=== PATIENT | female | born 1980 | race Caucasian/White ===

== ENCOUNTER 2019-10-16 00:39 | Emergency (ER) | payer MEDICAID, SELFPAY ==
[2019-10-16 00:58] VITALS: BP 121/68; RESP 16; O2SAT 96; BMI 30.4
--- NOTE | 2019-10-16 01:02 | ED_ITS ---
Entered by Francia Myrick, acting as scribe for Andrea Canseco DO Oct 16, 2019 00:39 HPI - Seizure General: Chief Complaint: Syncope Stated Complaint: PASSED OUT, SEIZURE Time Seen by Provider: 10/16/19 01:03 Source: patient and family Mode of arrival: ambulatory Limitations: no limitations History of Present Illness: HPI Narrative: 39 yo f came to the er pov with family for a possible seizure. Onset was tonight. Family states that she has had multiple seizures the last few weeks. Family states that she had one tonight when she was setting on the side of the bed and then started to shaking all over and her eyes rolled in the back of her head. Pts family states that she is out for a couple of minutes at a time. Pt has a tremor in her right hand. MD complaint: seizure Onset (ago): day(s) (last night) Description of Episode: loss of consciousness Witnessed: Yes - by Other () Trauma: No Seizure History: Yes Place: Home Possible Precipitating Event: none Associated symptoms: Reports no associated symptoms; Deny chest pain, chills, confusion or fever(s) Review of Systems Const: Denies: fever or chills Eyes: Denies: change in vision or blurry vision ENMT: Denies: painful swallowing, swelling of lips/tongue, bleeding gums, den tyson pain, Change in hearing, nose bleeds, post nasal drip or facial/sinus pain Card: Denies: chest pain Resp: Denies: shortness of breath, productive cough, non-productive cough or wheezing GI: Denies: abdominal pain, nausea, vomiting, rectal pain, blood in stool or black tarry stool : Denies: painful urination, urinary frequency, urinary urgency or blood in urine Musc: Denies: neck pain, back pain, redness or joint warmth Skin/Breast: Denies: rash, itching or redness Neuro: Denies: confusion Psych: Denies: anxiety PFSH ED PFSH: Statuses (acute, chronic, etc) shown below reflect problem list status as previously entered and may not be historically accurate Social History Smoking and tobacco status: current every day smoker Physical Exam Const: GENERAL APPEARANCE: well developed ORIENTATION/CONSCIOUSNESS: Yes oriented to person, Yes oriented to place and Yes oriented to time HENMT: COMMON NORMALS: normocephalic, external ears normal and external nose normal HEAD & SCALP: normocephalic; no scalp tenderness FACE & SINUS: normal facial exam NOSE: external nose normal and no nasal discharge EXTERNAL EAR: Yes external ears normal MOUTH: tongue normal TEETH & GINGIVA: no abnormal tooth and associated gingiva THROAT: posterior oropharynx normal; no peritonsillar mass Eye: COMMON NORMALS: PERRL, EOMs intact bilaterally and conjunctivae normal EYELID: eyelids normal CONJUNCTIVA: Yes conjunctivae normal PUPIL: Yes PERRL Neck/C-Spine: COMMON NORMALS: full ROM GENERAL: No tracheal deviation CERVICAL SPINE: Yes normal cervical lordosis and No cervical spine tenderness Chest: COMMONS NORMALS: inspection of chest normal CHEST: No tenderness Resp: COMMON NORMALS: clear to auscultation bilaterally EFFORT & INSPECTION: No tachypneic, No respiratory distress, No retractions, No uses accessory muscles and No tracheal deviation AUSCULTATION: clear to auscultation bilaterally, no rhonchi, no wheezes and lung sounds not diminished Cardio: COMMON NORMALS: regular rate and regular rhythm RATE: regular rate RHYTHM: regular rhythm HEART SOUNDS: no murmurs PERIPHERAL PULSES: radial pulses present GI: INSPECTION: No abdominal distension AUSCULTATION: No hyperactive bowel sounds and No hypoactive bowel sounds PALPATION: No guarding and No rigid PERCUSSION: no dullness to percussion and no tympanic to percussion : COMMON NORMALS: Yes no CVA tenderness BLADDER/KIDNEY EXAM: Yes no CVA tenderness Back/Pelvis: COMMON NORMALS: no CVA tenderness Neuro: SENSORIUM/ORIENTATION: Yes oriented to person, Yes oriented to place and Yes oriented to time CRANIAL NERVES: Yes CN normal except as noted COORDINATION/BALANCE: ksazrn-kq-tqru test normal and rapid alternating mvmt upper ext normal SPEECH: speech normal SENSORY EXAM: Yes extremities MOTOR EXAM: no pronator drift and tremor resting tremor right upper extremity COORDINATION: xlgfyc-sj-xqak test normal and rapid alternating movement UE normal Psych: COMMON NORMALS: mental status grossly normal Skin: COMMON NORMALS: no rashes or lesions noted GENERAL SKIN EXAM: no rashes or lesions noted Course ED course: 39-year-old female with a history of migraines. She has been having seizure-like episodes for the past few weeks, and seeming to be increasing in frequency. She had 2 tonight. She did not have a headache when they started, but does have a headache afterward. She is mildly confused when she wakes, but clears quickly. There is no history of loss of bowel or bladder control, biting of the tongue, etc. Her work-up was essentially benign. Because of multiple episodes, including 1 here, she will be placed on Keppra. She has an evaluation appointment next week with neurology. Vital Signs: Vital signs: Vital Signs Pulse Rate 75 10/16/19 03:15 Respiratory Rate 16 10/16/19 03:28 Blood Pressure 121/68 10/16/19 03:15 Pulse Oximetry 98 10/16/19 03:15 MDM - Seizure Lab Data: Labs: Lab Results 10/16/19 10/16/19 10/16/19 Range/Units 01:35 01:35 01:35 WBC 10.1 H (4.0-10.0) 10^3/ uL RBC 4.07 L (4.1-5.3) 10^6/u L Hgb 12.7 (11.5-15.3) g/dL Hct 38.2 (37.0-47.0) % MCV 93.9 (81-99) fL MCH 31.2 (28.0-34.0) pg MCHC 33.2 (30.0-36.0) g/dL RDW 13.0 (12.1-15.1) % Plt Count 454 H (130-400) 10^3/c mm MPV 9.6 (7.4-10.4) fL Neut % (Auto) 47.2 % Lymph % (Auto) 40.9 % [place] % (Auto) 8.4 % Eos % (Auto) 2.7 % Baso % (Auto) 0.6 % Neut # (Auto) 4.8 (1.8-7.7) 10^3/u L Lymph # (Auto) 4.1 (0.8-4.8) 10^3/u L [place] # (Auto) 0.9 (0.2-0.9) 10^3/u L Eos # (Auto) 0.3 (0.0-0.8) 10^3/u L Baso # (Auto) 0.1 (0.0-0.1) 10^3/u L Nucleated RBC % (a uto) 0 % Nucleated RBCs # 0.0 /100WBC Sodium 139 (136-145) mmol/L Potassium 3.5 (3.5-5.1) mmol/L Chloride 103 (98-107) mmol/L Carbon Dioxide 25 (22-29) mmol/L Anion Gap 14.5 (5-19) BUN 8 (6-20) mg/dL Creatinine 0.6 (0.5-0.9) mg/dL GFR Calculation 111.9 (90-130) mL/min Glucose 92 (74-109) mg/dL Calcium 9.9 (8.5-10.5) mg/dL Phosphorus 5.0 H (2.5-4.5) mg/dL Magnesium 2.1 (1.7-2.3) mg/dL Total Bilirubin 0.2 (0.15-1.2) mg/dL AST 13 (0-32) U/L ALT 20 (0-33) U/L Alkaline Phosphata se 75 (35-105) IU/L Ammonia 30 (11-51) umol/L Troponin T Gen 5 n g/L (0-10) ng/mL Total Protein 6.7 (6.6-8.7) g/dL Albumin 4.2 (3.5-5.2) g/dL Globulin 2.5 (1.3-4.6) g/dL Ethyl Alcohol < 10 (0-10) mg/dL 10/16/19 Range/Units 01:35 WBC (4.0-10.0) 10^3/ uL RBC (4.1-5.3) 10^6/u L Hgb (11.5-15.3) g/dL Hct (37.0-47.0) % MCV (81-99) fL MCH (28.0-34.0) pg MCHC (30.0-36.0) g/dL RDW (12.1-15.1) % Plt Count (130-400) 10^3/c mm MPV (7.4-10.4) fL Neut % (Auto) % Lymph % (Auto) % [place] % (Auto) % Eos % (Auto) % Baso % (Auto) % Neut # (Auto) (1.8-7.7) 10^3/u L Lymph # (Auto) (0.8-4.8) 10^3/u L [place] # (Auto) (0.2-0.9) 10^3/u L Eos # (Auto) (0.0-0.8) 10^3/u L Baso # (Auto) (0.0-0.1) 10^3/u L Nucleated RBC % (a uto) % Nucleated RBCs # /100WBC Sodium (136-145) mmol/L Potassium (3.5-5.1) mmol/L Chloride (98-107) mmol/L Carbon Dioxide (22-29) mmol/L Anion Gap (5-19) BUN (6-20) mg/dL Creatinine (0.5-0.9) mg/dL GFR Calculation (90-130) mL/min Glucose (74-109) mg/dL Calcium (8.5-10.5) mg/dL Phosphorus (2.5-4.5) mg/dL Magnesium (1.7-2.3) mg/dL Total Bilirubin (0.15-1.2) mg/dL AST (0-32) U/L ALT (0-33) U/L Alkaline Phosphata se (35-105) IU/L Ammonia (11-51) umol/L Troponin T Gen 5 n g/L 6 (0-10) ng/mL Total Protein (6.6-8.7) g/dL Albumin (3.5-5.2) g/dL Globulin (1.3-4.6) g/dL Ethyl Alcohol (0-10) mg/dL Imaging Data^: CT Head: Radiologist's impression: [place] [address] CT Scan Report Signed Patient: Abi Boyle #: [id number] : 1980Acct#:[id number] Age/Sex: 39 / FADM Date: 10/16/19 Loc: ERRoom/Bed: Attending Dr: Ordering Provider/Ordering MD: Andrea Canseco DO Date of Service: 10/16/19 Procedure(s): CT head wo con* [id number] Accession Number(s): [id number] Report Number: [id number] PROCEDURE INFORMATION: Exam: CT Head Without Contrast Exam date and time: 10/16/2019 1:35 AM Age: 39 years old Clinical indication: Condition or disease; Convulsions or seizures; Unspecified; Additional info: Symptoms of acute stroke TECHNIQUE: Imaging protocol: Computed tomography of the head without contrast. Total DLP: 752.06 mGy-cm Radiation optimization: All CT scans at this facility use at least one of these dose optimization techniques: automated exposure control; mA and/or kV adjustment per patient size (includes targeted exams where dose is matched to clinical indication); or iterative reconstruction. COMPARISON: No relevant prior studies available. FINDINGS: Brain: Normal. No hemorrhage. Unremarkable white matter. No mass effect. Ventricles: Normal. No ventriculomegaly. Bones/joints: Unremarkable. No acute fracture. Sinuses: There is mild mucosal thickening and fluid seen within the ethmoidal sinuses. Mastoid air cells: Visualized mastoid air cells are well aerated. Soft tissues: Unremarkable. CT/CT head wo con* [id number] IMPRESSION: There are no acute intracranial findings. Radiation Dose CTDIVOL = (mGy): DLP = 752.06 (mGy-cm) Dictated By:Cameron Silva MD Signed By:Cameron Silvaigned Date/Time:10/16/19206 DD/ 5 Discharge Plan Discharge Patient Disposition: Home, Self-Care Clinical Impression: Seizure Condition: Stable Prescriptions: New Keppra 500 mg tablet 500 mg PO BID Qty: 30 RF: 0 No Action ibuprofen 800 mg Tablet 800 mg PO Q8H RF: 0 omeprazole 20 mg Capsule,Delayed Release(Dr/Ec) 20 mg PO DAILY RF: 0 naproxen 500 mg Tablet 500 mg PO BID PRN (Reason: Pain) RF: 0 Lialda 1.2 gram Tablet,Delayed Release (Dr/Ec) 4.8 g PO BEDTIME RF: 0 Discharge Orders: Discharge Order (Routine); Ordered 10/16/19 Ordered By: Andrea Canseco Referrals: [facility] [Primary Care Provider] - Discharge Diet: Usual diet Discharge Activity: Increase activity as tolerated Patient Instructions: New-Onset Seizure in Adults (ED) Activity Restrictions/Additional Instructions: Return for repeated episodes of seizure despite treatment, mental status changes, weakness, other concerning symptoms. Discharge Date/Time: 10/16/19 03:29 Coding Level of Care Code ED Sheep Farm Worker for Bella Orourke The documentation recorded by the Ramez ramirez Stephanie Lyn, accurately reflects the service I personally performed and the decisions made by , Andrea Canseco, Oct 16, 2019 00:39
--- NOTE | 2019-10-16 01:27 | XRR_ITS ---
PROCEDURE INFORMATION: Exam: XR Chest, 1 View Exam date and time: 10/16/2019 2:15 AM Age: 39 years old Clinical indication: Other: Syncope; Additional info: Syncope, passed out, seizure TECHNIQUE: Imaging protocol: XR of the chest Views: 1 view. COMPARISON: No relevant prior studies available. FINDINGS: Lungs: Minor lingular area of atelectasis, scarring or pneumonitis with pleural thickening or minimal effusion. Pleural space: Unremarkable. No pleural effusion. No pneumothorax. Heart/Mediastinum: Unremarkable. No cardiomegaly. Bones/joints: Unremarkable. XR/XR chest 1V portable [id number] IMPRESSION: For minimal lingular scarring/atelectasis or pneumonitis with pleural thickening or minimal effusion.
--- NOTE | 2019-10-16 01:27 | ECG_ITS ---
Measurements Intervals [place] Rate: 75 P: 28 [place]: 322 QRS: 27 QRSD: 78 T: 20 QT: 365 QTc: 408 SINUS RYTHM WITH ARTIFACT LOW QRS VOLTAGE IN PRECORDIAL LEADS [QRS DEFLECTION < 1.0 mV IN CHEST LEADS] ABNORMAL RHYTHM ECG No previous ECG available for comparison Electronically Signed On 10-16-2019 18:53:01 NEONATAL SOCIAL WORKER by Martin Smith M.D. [email or web address]
--- NOTE | 2019-10-16 01:27 | CTR_ITS ---
PROCEDURE INFORMATION: Exam: CT Head Without Contrast Exam date and time: 10/16/2019 1:35 AM Age: 39 years old Clinical indication: Condition or disease; Convulsions or seizures; Unspecified; Additional info: Symptoms of acute stroke TECHNIQUE: Imaging protocol: Computed tomography of the head without contrast. Total DLP: 752.06 mGy-cm Radiation optimization: All CT scans at this facility use at least one of these dose optimization techniques: automated exposure control; mA and/or kV adjustment per patient size (includes targeted exams where dose is matched to clinical indication); or iterative reconstruction. COMPARISON: No relevant prior studies available. FINDINGS: Brain: Normal. No hemorrhage. Unremarkable white matter. No mass effect. Ventricles: Normal. No ventriculomegaly. Bones/joints: Unremarkable. No acute fracture. Sinuses: There is mild mucosal thickening and fluid seen within the ethmoidal sinuses. Mastoid air cells: Visualized mastoid air cells are well aerated. Soft tissues: Unremarkable. CT/CT head wo con* [id number] IMPRESSION: There are no acute intracranial findings. Radiation Dose CTDIVOL = (mGy): DLP = 752.06 (mGy-cm)
[2019-10-16 01:40] LABS: Basophils # 0.1 10^3/uL (0.0-0.1); Basophils % 0.6 %; Eosinophils # 0.3 10^3/uL (0.0-0.8); Eosinophils % 2.7 %; Hematocrit 38.2 % (37.0-47.0); Hemoglobin 12.7 g/dL (11.5-15.3); Lymphocytes # 4.1 10^3/uL (0.8-4.8); Lymphocytes % 40.9 %; Mean Corpuscular HGB Conc 33.2 g/dL (30.0-36.0); Mean Corpuscular Hemoglobin 31.2 pg (28.0-34.0); Mean Corpuscular Volume 93.9 fL (81-99); Mean Platelet Volume 9.6 fL (7.4-10.4); Monocytes # 0.9 10^3/uL (0.2-0.9); Monocytes % 8.4 %; Neutrophils # 4.8 10^3/uL (1.8-7.7); Neutrophils % 47.2 %; Nucleated Red Blood Cells % 0 %; Platelet Count 454 10^3/cmm (130-400); Red Blood Count 4.07 10^6/uL (4.1-5.3); White Blood Count 10.1 10^3/uL (4.0-10.0)
--- NOTE | 2019-10-16 01:40 | PC.NURSE ---
While hooking up the patient to the EKG leads, the patient all of a sudden passed out, lab was at bedside, and so was the patient's family. The significant other of the patient was calling to her and was cupping her face. I called to her and did a sternal rub on her with no response. I quickly grabbed the patient's nurse and she came too right as the nurse and I re-entered the room. I informed the doctor as I handed him the EKG.
[2019-10-16] MEDS: sodium chloride 0.9% 500 ML 999 ML IV (01:50)
[2019-10-16] MEDS: LORazepam 2 mg/mL INJ 1 mL 1 MG IVP (01:51)
[2019-10-16 01:59] LABS: Ammonia 30 umol/L (11-51)
[2019-10-16 02:00] LABS: Alanine Aminotransferase 20 U/L (0-33); Albumin Level 4.2 g/dL (3.5-5.2); Alkaline Phosphatase 75 IU/L (35-105); Anion Gap 14.5 (5-19); Aspartate Amino Transferase 13 U/L (0-32); Blood Urea Nitrogen 8 mg/dL (6-20); Calcium 9.9 mg/dL (8.5-10.5); Carbon Dioxide 25 mmol/L (22-29); Chloride 103 mmol/L (98-107); Globulin 2.5 g/dL (1.3-4.6); Glomerular Filtration Rate 111.9 mL/min (90-130); Glucose 92 mg/dL (74-109); Magnesium 2.1 mg/dL (1.7-2.3); Potassium 3.5 mmol/L (3.5-5.1); Sodium 139 mmol/L (136-145); Total Bilirubin 0.2 mg/dL (0.15-1.2); Total Protein 6.7 g/dL (6.6-8.7)
[2019-10-16 02:02] LABS: Alcohol Level < 10 mg/dL (0-10)
[2019-10-16 02:14] LABS: Slide Review Slide Review Perform
[2019-10-16 02:16] LABS: Troponin T (5th) Once 6 ng/mL (0-10)
[2019-10-16] MEDS: levETIRAcetam 500 mg Tablet 1000 MG PO (03:06)
[2019-10-16 03:15] VITALS: BP 121/68; PULSE 75; O2SAT 98
[2019-10-16] MEDS: ketorolac 30 mg/mL INJ IVP (03:23)
[2019-10-16 03:28] VITALS: RESP 16
[2019-10-16] MEDS: fentaNYL 50 mcg/mL INJ 2mL 100 MCG IVP (03:28)
== END 2019-10-16 03:29 | disposition home or self-care (01) ==
PROVIDERS: Emergency Provider Emergency Medicine; Family Provider Family Medicine; PCP Family Medicine
DX: R56.9 Unspecified convulsions (principal); F17.210 Nicotine dependence, cigarettes, uncomplicated
CPT/HCPCS: 36415; 70450; 71045; 80053; 80307; 82140; 83735; 84100; 84484; 85025; 93005; 96374; 99282; J1885; J2060; J3010; J7040

== ENCOUNTER → 2019-10-18 13:43 | Outpatient (BNVA) | payer MEDICAID, SELFPAY | PROVIDERS: Family Provider Family Medicine; PCP Family Medicine; Referring Provider Nurse Practitioner Family; Visit Provider Specialist | DX: R55 Syncope and collapse (principal); F44.5 Conversion disorder with seizures or convulsions; G43.019 Migraine without aura, intractable, without status migrainosus; F17.210 Nicotine dependence, cigarettes, uncomplicated | CPT/HCPCS: 99204; 99214 ==

== ENCOUNTER → 2019-10-20 14:49 | Outpatient (BNVA) | payer MEDICAID, SELFPAY | PROVIDERS: Family Provider Family Medicine; PCP Nurse Practitioner Family; Visit Provider Specialist | DX: R55 Syncope and collapse (principal) | CPT/HCPCS: 95816 ==

== ENCOUNTER 2020-01-12 23:04 | Emergency (ER) | payer MEDICAID, SELFPAY ==
[2020-01-12 23:14] VITALS: BP 137/86; PULSE 86; RESP 17; TEMP 36.1; O2SAT 97; BMI 30.4
--- NOTE | 2020-01-13 01:04 | ED_ITS ---
HPI - Extremity Problem General: Chief complaint: Extremity Problem,Nontraumatic Stated complaint: RIGHT ANKLE PAIN Time Seen by Provider: 01/13/20 00:50 History of Present Illness: HPI Narrative: Patient is a 39-year-old female who comes to the ED with right ankle pain and swelling. PMH of migraines and functional neurological symptom disorder with attacks or seizures. Patient had a seizure episode yesterday and was found on the bathroom floor. Patient denies any bladder or bowel incontinence and was not tired or sleepy after seizure. Patient noticed today that her right ankle was hurting and she had some swelling in her right ankle. She was unsure but she possibly could have injured it when she had her seizure yesterday. Patient states that she is having a headache currently and she rates it about a 7 out of 10. Patient took 800 mg of ibupr ofen for pain and headache today. Associated symptoms: Deny chest pain, fever(s) or rash Review of Systems Const: Denies: fever, chills or fatigue Eyes: Denies: change in vision or eye discomfort ENMT: Denies: throat pain, painful swallowing, nasal discharge or nasal congestion Card: Denies: chest pain, palpitations, edema, swelling of feet/ankles, shortness of breath on exertion or shortness of breath when lying down Resp: Denies: shortness of breath, productive cough or non-productive cough GI: Denies: abdominal pain, nausea, vomiting, diarrhea, constipation or blood in stool : Denies: flank pain, painful urination or blood in urine Musc: Reports: extremity pain (right ankle) and extremity swelling (right ankle); Denies: neck pain or back pain Skin/Breast: Denies: rash or new lesion Neuro: Reports: headache; Denies: numbness in extremities or weakness in extremities PFS ED PFSH: Family History Other CAD (coronary artery disease) Diabetes Hypertension Denies family history of Stroke Social History Smoking and tobacco status: current every day smoker cigarettes Packs smoked per day: 0.5 Alcohol intake: never Physical Exam Const: COMMON NORMALS: oriented x3 HENMT: COMMON NORMALS: normocephalic and head/scalp atraumatic HEAD & SCALP: normocephalic and atraumatic; no Acosta's sign and no raccoon eyes MOUTH: oral and palatal mucosa normal THROAT: posterior oropharynx normal and uvula midline Eye: COMMON NORMALS: PERRL, EOMs intact bilaterally and normal visual basurto by confrontation PUPIL: Yes PERRL Neck/C-Spine: COMMON NORMALS: supple GENERAL: Yes normal visual inspection Resp: COMMON NORMALS: normal respiratory effort, no retractions, no use of accessory muscles and clear to auscultation bilaterally AUSCULTATION: clear to auscultation bilaterally Cardio: COMMON NORMALS: regular rate, regular rhythm, S1 normal heart sound, S2 normal heart sound, no gallops, no clicks, no murmurs and peripheral pulses 2+ throughout RATE: regular rate RHYTHM: regular rhythm HEART SOUNDS: S1 normal and S2 normal PERIPHERAL PULSES: pulses 2+ throughout GI: COMMON NORMALS: normal to inspection, nondistended, normoactive bowel sounds, soft to palpation, non-tender and no masses PALPATION: Yes soft : COMMON NORMALS: Yes no CVA tenderness BLADDER/KIDNEY EXAM: Yes no CVA tenderness Back/Pelvis: COMMON NORMALS: no CVA tenderness Extremity: RIGHT LOWER EXTREMITY: Yes ankle joint Right ankle: Yes inspection (Swelling along lateral side of ankle around lateral malleolus. No warmth or erythema), Yes palpation (Tenderness upon palpation around the lateral malleolus.), Yes ROM (Full but has pain with movement.) and Yes neurovascular exam (Intact) Neuro: COMMON NORMALS: oriented x3, CN's II-XII intact bilaterally, moves all extremities, no focal motor deficits and no sensory deficits noted COORDI NATION/BALANCE: aacmxx-dm-lztv test normal MOTOR EXAM: strength 5/5 throughout COORDINATION: cczqeu-ro-wfsw test normal Skin: COMMON NORMALS: no rashes or lesions noted GENERAL SKIN EXAM: no rashes or lesions noted and dry skin Course ED course: After patient received hydrocodone to help with ankle pain and headache she said that her ankle pain is doing better and now rates her headache about a 5 out of 10. She says her headache does not feel all that bad currently. Vital Signs: Vital signs: Vital Signs Temperature 97.0 F L 01/12/20 23:14 Pulse Rate 74 01/13/20 02:51 Respiratory Rate 16 01/13/20 02:51 Blood Pressure 132/77 01/13/20 02:51 Pulse Oximetry 94 01/13/20 02:51 MDM - Extremity (Nontraumatic) MDM Narrative: Medical decision making narrative: Patient is a 39-year-old female who comes to the ED with right ankle pain and swelling. Patient had a seizure episode yesterday and was found on bathroom floor. Patient is not sure if she might of injured right ankle during seizure. Physical exam showed ankle with right lateral malleolus tenderness and swelling. Neuro exam was normal. Ultrasound venous duplex of right lower extremity showed no clots or DVTs. Ankle x-ray showed no acute fractures. CT of head was performed since patient had a seizure and was found on the floor and was complaining of having a head ache today. CT of head showed no acute findings. Patient was given hydrocodone while here on the unit for right ankle pain and headache. Patient's ankle pain and headache improved. Patient was diagnosed with right ankle sprain and headache. Patient was given crutches and told to rest, ice, elevate and compress with Bart wrap. I also told her to use crutches to help ambulate. Patient told to follow-up with PCP in the next week for reevaluation. Imaging Data^: US Vascular: Attestation: I personally reviewed and interpreted this imaging study as follows: Radiologist's impression: Ultrasound venous duplex of right lower extremity?prelim report showed no DVTs or blood clots. CT Head: Attestation: I personally reviewed and interpreted this imaging study as follows: Radiologist's impression: [address] [address] [address] Scan Report Signed Patient: Concepción Boyle Unit #: [id number] : 1980 Age/Sex: 39 / F ADM Date: 01/12/20 Loc: ER Room/Bed: Attending Dr: Ordering Provider/Ordering MD: Luke Taylor Date of Service: 01/13/20 Procedure(s): CT head wo con* [id number] Accession Number(s): [id number] Report Number: [id number] PROCEDURE INFORMATION: Exam: CT Head Without Contrast Exam date and time: 01/13/2020 1:33 AM Age: 39 years old Clinical indication: Pain; Syncope and collapse; Headache; Additional info: Seizure yesterday, possible head trauma, headache TECHNIQUE: Imaging protocol: Computed tomography of the head without contrast. Radiation optimization: All CT scans at this facility use at least one of these dose optimization techniques: automated exposure control; mA and/or kV adjustment per patient size (includes targeted exams where dose is matched to clinical indication); or iterative reconstruction.Total DLP: 810.16 mGy-cm COMPARISON: CT head wo con* [id number] 10/16/2019 2:07 AM FINDINGS: Brain: Unremarkable. No hemorrhage or CT evidence of acute infarction is seen. Ventricles: Normal. No ventriculomegaly. Bones/joints: Unremarkable. No acute fracture. Sinuses: Visualized sinuses are unremarkable. No fluid levels. Mastoid air cells: Visualized mastoid air cells are well aerated. Soft tissues: Unremarkable. CT/CT head wo con* [id number] IMPRESSION: No acute intracranial abnormality. Radiation Dose CTDIVOL = (mGy): DLP = 810.16 (mGy-cm) Dictated By: Alonzo Arcos MD Signed By: Alonzo Arcos MD Signed Date/Time: 01/13/20227 DD/ 6 Xray Ortho: Attestation: I personally reviewed and interpreted this imaging study as follows: My impression: Right ankle x-ray?no acute fracture seen. Pending final radiology report. Discharge Plan Discharge Patient Disposition: Home, Self-Care Clinical Impression: Right ankle sprain Qualifiers: Encounter type: initial encounter Involved ligament of ankle: anterior talofibular ligament Qualified Code(s): S93.491A - Sprain of other ligament of right ankle, initial encounter Headache Qualifiers: Headache type: unspecified Headache chronicity pattern: acute headache Intractability: not intractable Qualified Code(s): R51 - Headache Condition: Stable Prescriptions: No Action azathioprine 50 mg tablet 50 mg PO QDAY RF: 0 ibuprofen 800 mg Tablet 800 mg PO Q8H RF: 0 omeprazole 20 mg Capsule,Delayed Release(Dr/Ec) 20 mg PO DAILY RF: 0 naproxen 500 mg Tablet 500 mg PO BID PRN (Reason: Pain) RF: 0 Lialda 1.2 gram Tablet,Delayed Release (Dr/Ec) 4.8 g PO BEDTIME RF: 0 Keppra 500 mg tablet 500 mg PO BID Qty: 30 RF: 0 Discharge Orders: Discharge Order (Routine); Ordered 01/13/20 Ordered By: Luke Taylor Referrals: Yecenia Holm FNP [Primary Care Provider] - [facility] [Family Provider] - Discharge Diet: Regular Discharge Activity: Increase activity as tolerated and Use walker/crutches as instructed Patient Instructions: Ankle Sprain (ED), Acute Headache (ED) Activity Restrictions/Additional Instructions: Follow-up with your PCP in 7 days for reevaluation. Rest, ice, elevate and Bart wrap right ankle. Take kdfq-nmf-acgluwq ibuprofen to help with pain and inflammation. Use crutches as needed to help with ambulation. Use minimal weightbearing on right ankle within the first 48 hours and then start to increase activity and weightbearing on right ankle as tolerated. Discharge Date/Time: 01/13/20 02:52 Coding Level of Care Code ED Analytic Manager for Divinag Fwd Exam Comprehensive
[2020-01-13 01:19] VITALS: PULSE 72; RESP 16
--- NOTE | 2020-01-13 01:29 | XR_ITS ---
WS: [id number] ANKLE RIGHT TECHNIQUE: 3 views of the right ankle CLINICAL INFORMATION: injury, tenderness and swelling COMPARISON: None. FINDINGS: Normal ankle mortise. Talar dome is normal. No visualized fractures. Mild soft tissue edema. XR/XR ankle RT min 3V* [id number] IMPRESSION: Mild soft tissue edema. No acute fractures.
--- NOTE | 2020-01-13 01:31 | CTR_ITS ---
PROCEDURE INFORMATION: Exam: CT Head Without Contrast Exam date and time: 01/13/2020 1:33 AM Age: 39 years old Clinical indication: Pain; Syncope and collapse; Headache; Additional info: Seizure yesterday, possible head trauma, headache TECHNIQUE: Imaging protocol: Computed tomography of the head without contrast. Radiation optimization: All CT scans at this facility use at least one of these dose optimization techniques: automated exposure control; mA and/or kV adjustment per patient size (includes targeted exams where dose is matched to clinical indication); or iterative reconstruction.Total DLP: 810.16 mGy-cm COMPARISON: CT head wo con* [id number] 10/16/2019 2:07 AM FINDINGS: Brain: Unremarkable. No hemorrhage or CT evidence of acute infarction is seen. Ventricles: Normal. No ventriculomegaly. Bones/joints: Unremarkable. No acute fracture. Sinuses: Visualized sinuses are unremarkable. No fluid levels. Mastoid air cells: Visualized mastoid air cells are well aerated. Soft tissues: Unremarkable. CT/CT head wo con* [id number] IMPRESSION: No acute intracranial abnormality. Radiation Dose CTDIVOL = (mGy): DLP = 810.16 (mGy-cm)
[2020-01-13] MEDS: HYDROcodone-acetaminophen 7.5-325 mg Tablet 1 TAB PO (01:36)
--- NOTE | 2020-01-13 02:50 | PC.NURSE ---
Pt right ankle wrapped and provided with crutches. Pt provided crutch training.
[2020-01-13 02:51] VITALS: BP 132/77; PULSE 74; RESP 16; O2SAT 94
--- NOTE | 2020-01-13 23:29 | USCV_ITS ---
Concepción Boyle Age: 39 Gender: F : 1980 Exam Date: 01/13/2020 00:34 Ordering Phys: Luke Taylor Technologist: Exam Location: [facility] [place] Indication: SWELLING OF LEG HISTORY: PAIN AND SWELLING RT LEG PROCEDURES: Venous duplex imaging was performed in only the right lower extremity. The following venous structures were evaluated: common femoral vein, profunda vein, proximal portion of the greater saphenous vein, superficial femoral vein, and the popliteal vein. In addition, the posterior tibial and peroneal trunk were evaluated. Serial compression, augmentation maneuvers, and spectral Doppler flow evaluation were performed. FINDINGS: No DVT seen in any vessel examined CONCLUSIONS No evidence of right lower extremity DVT. Kar Mata MD (Electronically Signed) Final Date: 13 January 2020 10:54 S
== END 2020-01-13 02:52 | disposition home or self-care (01) ==
PROVIDERS: Emergency Provider Physician Assistant; Family Provider Family Medicine; PCP Nurse Practitioner Family
DX: S93.491A Sprain of other ligament of right ankle, initial encounter (principal); R51 Headache; X58.XXXA Exposure to other specified factors, initial encounter; F17.210 Nicotine dependence, cigarettes, uncomplicated
CPT/HCPCS: 12345; 70450; 73610; 93971; 99281; 99283

== ENCOUNTER 2024-06-27 12:53 | Outpatient (CLI) | payer BC, MEDICAID, SELFPAY ==
--- NOTE | 2024-06-27 | ECG_ITS ---
Test Date: 2024-06-27 Pat Name: Concepción Boyle Department: Room: Gender: Female Diaper Folder: : 1980 Requested By: [place] Order Number: [id number] MD: Enrique Arthur M.D. Interpretive Statements EXERCISE STRESS TEST EXERCISE DATA: The patient was exercised by Gigi protocol. Baseline heart rate was 71 beats per minute. Baseline blood pressure [id number]/76 millimeters of mercury. Maximal predicted heart rate was 177 beats per minute. Maximum heart rate achieved [id number] which was 87% of the maximum predicted heart rate. Maximum blood pressure was 167/77 millimeters of mercury. Total exercise time was 2 minutes and 16 seconds. Maximum METs achieved was 4.6. The patient complained of shortness of breath and leg discomfort during the stress test, which then resolved at the end of the test. ELECTROCARDIOGRAM: BASELINE: Showed sinus rhythm, normal axis, T wave inversions in lead III. EXERCISE: At the peak exercise level, [] No significant ST-T changes suggestive of ischemia noted. [] RECOVERY: During the recovery period, heart rate dropped appropriately. No significant ST-T changes in the recovery suggestive of ischemia noted. [] CONCLUSION: 1. Exercise capacity is poor. 2. Heart rate response was appropriate. 3. Blood pressure response was appropriate. 4. Symptoms not suggestive of ischemia. 5. Stress test was not suggestive of ischemia. Electronically Signed On 07-01-2024 20:40:00 CDT by Enrique Arthur M.D. [email or web address]
[2024-06-27 13:18] VITALS: BP 157/78; PULSE 98; BMI 30.1
== END 2024-06-27 12:54 | disposition home or self-care (01) ==
LOC: CDL 12:55
PROVIDERS: PCP Nurse Practitioner Family; Visit Provider Family Medicine
DX: R07.9 Chest pain, unspecified (principal)
CPT/HCPCS: 93017

== ENCOUNTER → 2025-03-08 13:56 | Outpatient (BNVA) | payer BC, MEDICAID, SELFPAY | PROVIDERS: PCP Nurse Practitioner Family; Visit Provider Specialist | DX: G56.03 Carpal tunnel syndrome, bilateral upper limbs (principal) | CPT/HCPCS: 73110 ==

== ENCOUNTER → 2025-03-28 12:48 | Outpatient (BNVA) | payer BC, MEDICAID, SELFPAY | PROVIDERS: PCP Nurse Practitioner Family; Visit Provider Podiatrist Foot & Ankle Surgery | DX: M79.671 Pain in right foot (principal); M79.672 Pain in left foot; M21.621 Bunionette of right foot; M21.622 Bunionette of left foot; M77.41 Metatarsalgia, right foot; M77.42 Metatarsalgia, left foot; G58.9 Mononeuropathy, unspecified | CPT/HCPCS: 73630 ==

== ENCOUNTER → 2025-05-03 15:22 | Outpatient (BNVA) | payer MEDICAID, SELFPAY | PROVIDERS: PCP Nurse Practitioner Family; Visit Provider Specialist | DX: Z01.818 Encounter for other preprocedural examination (principal) | CPT/HCPCS: 36415; 80053; 81001; 85025 ==

== ENCOUNTER 2025-05-18 09:09 | Day surgery (SDC) | payer MEDICAID, SELFPAY ==
[2025-05-18] VITALS (9 sets, daily range): BP systolic 109–159; BP diastolic 64–99; PULSE 63–97; RESP 16; TEMP 36.1–36.6; O2SAT 93–97
[2025-05-18] MEDS: acetaminophen 1,000 MG/100 ML PIGGYBACK 400 MG IV (09:32)
--- NOTE | 2025-05-18 09:34 | ANES.PREANE2 ---
Pre-Anesthetic Assessment Height/Weight: Height 5 ft 5 in Weight 207 lb Temp Pulse Resp BP Pulse Ox O2 Del Method 97.1 F L 63 16 120/64 97 Room Air 05/18/25 09:16 05/18/25 09:16 05/18/25 09:16 05/18/25 09:16 05/18/25 09:16 05/18/25 09:16 Preop Diagnosis: Carpal tunnel syndrome Operation Date: 05/18/25 10:30 Proposed Procedures p Carpal Tunnel Release(Left) - Lillie Colbert MD Was Beta Tyler taken within 24 hours: N/A Was Clonidine taken within 24 hours: N/A Last intake: Intake Last Liquid Date 05/17/25 Last Liquid Time 23:59 Last Solid Date 05/17/25 Last Solid Time 23:00 Social Tobacco and No alcohol Exam alert, oriented x 3 and regular rate & rhythm Airway Submandibular: within normal limits Cervical ROM: within normal limits Mallampati: Class III Comments: Comments: Very poor dentition, multiple decaying teeth. Denies any loose though Anesthetic Plan ASA status: 3 Anesthesia: General Other: No prior issues with anesthesia NPO since yesterday evening History of GERD, controlled with omeprazole Vapes nicotine BMI 34 Recent labs 05/03/2025 reviewed acceptable for procedure METs greater than 4 Plan for general anesthesia with LMA Medications/Allergies Home Medications ?Medication ?Instructions ?Recorded ?Confirmed ?Last Taken ?Type omeprazole 20 mg capsule,delayed 20 mg PO DAILY 10/16/19 05/18/25 05/08/25 History release diclofenac sodium 1 % topical gel 4 g topical BID #100 grams 03/28/25 05/18/25 05/16/25 Rx (Voltaren Arthritis Pain) ibuprofen 800 mg tablet 800 mg PO Q8H PRN Pain (Scale 05/03/25 05/18/25 05/08/25 History Score 1-3) Allergies Allergy/AdvReac Type Severity Reaction Status Date / Time No Known Allergies Allergy Verified 05/03/25 13:24 PFSH Anesthesia Family History Other CAD (coronary artery disease) Diabetes Hypertension Denies family history of Stroke Social History Smoking and tobacco/nicotine status: unknown if used tobacco/nicotine Alcohol intake: never Substance/Drug Use: never
--- NOTE | 2025-05-18 10:14 | W.PM.OPSUD ---
Surgery/Procedure H&P Update DATE OF PROCEDURE: May 18, 2025 DATE H&P PERFORMED: 05/03/25 H&P UPDATE INFORMATION: I have reviewed H&P completed within last 30 days, I have examined patient prior to procedure, No changes to prior documentation, Changes to prior documentation as noted here and Risks and benefits of the procedure reviewed PREOP DIAGNOSIS: Left carpal tunnel syndrome PLANNED PROCEDURE: Operation Date: 05/18/25 10:30 Proposed Procedures p Carpal Tunnel Release(Left) - Lillie Colbert MD Related Problem List Diagnoses 1. Carpal tunnel syndrome, left:
[2025-05-18] MEDS: ceFAZolin 2,000 mg SDV 2000 MG IVP (10:26)
[2025-05-18] MEDS: BUPivacaine 0.5% INJ 30 mL XX (11:04)
--- NOTE | 2025-05-18 11:52 | P.OP_ITS ---
Operative Report Date of procedure: May 18, 2025 Pre-op diagnosis: Left carpal tunnel syndrome Post-op diagnosis: Left carpal tunnel syndrome Post-op findings: Significant compression across the carpal canal Procedure done: Left carpal tunnel release Implants: None Specimens removed/disposition: None Pathology: None Surgeon: Lillie Colbert MD Traveling Accountant: None Anesthesia: General (Per LMA, ASA 2) Estimated blood loss (mL): 2 Tourniquet time (min): 26 (At 250 mmHg) IV fluids (mL): 600 Urine output (mL): 0 (No Joel) Complications: None Findings: Significant compression across the carpal canal consistent with carpal tunnel syndrome Condition: stable Disposition: PACU (Then return to same-day surgery for discharge to home) Brief History: This 45-year-old woman presented to the clinic with complaints of left and right carpal tunnel syndrome type symptoms. Nerve conduction study confirmed carpal tunnel syndrome bilaterally. After discussion in the office, the patient wished to proceed with left carpal tunnel release. She is also interested in having her right carpal tunnel release. The patient reported she dropped things. She had jolting shocks into her fingers. Upon evaluation, she was found to have symptoms consistent with carpal tunnel syndrome, severe, and plans are made for her surgical intervention. Risks and complications were discussed with her, and consents were signed in the office. Procedure: The patient was brought to the operating theater. The patient had a general anesthesia per LMA, ASA 2. The tourniquet was elevated to 250 mmHg for a total tourniquet time of 26 minutes. The patient was also given Ancef 2 g preoperatively. The arm was then prepped and draped with DuraPrep in usual fashion with the arm draped free. A surgical pause was performed. At the time, the surgical pause, we confirmed the site and side of surgery. We also confirmed the patient's identity, appropriate and timely administration of preoperative antibiotics and preoperative surgical markings. An incision was then made along the thenar crease. The incision crossed the wrist joint in a curvilinear fashion. Dissection continued through skin and soft tissues using a scalpel. The palmaris longus was identified along with the transverse carpal ligament. Each of these was released carefully to avoid injury to the median nerve. We were able to dissect gently into the carpal canal which was noted to be quite tight with significant compression across the median nerve. The nerve was visualized and was an hourglass shape. The canal was subsequently palpated to assure there was no bony encroachment upon the canal. There was a quite thickened fibrous tissue within the canal, and this was opened longitudinally as well. The canal was then palpated distally and proximally to assure that my small finger was passed easily without impingement. Finding this to be so, attention was directed to closure. The wound was irrigated with ropivacaine plain. It was then closed with 3-0 nylon in an interrupted mattress fashion. Sterile dressing was then placed consisting of Dermabond, OpSite, fluffed fluffs, sterile soft roll, and an Bart wrap. The tourniquet was released after 26 minutes. There were no complications. There were no specimens. The procedure was well tolerated. Plan is the patient will be discharged home. Related Problem List Diagnoses 1. Carpal tunnel syndrome, left:
[2025-05-18] MEDS: HYDROcodone-acetaminophen 5-325 mg Tablet 1 TAB PO (12:01)
--- NOTE | 2025-05-18 12:30 | ANE.PACU2 ---
Inpatient post-anesthesia follow up: Airway intact: Yes Vital signs: Temperature 98 F Pulse Rate 87 Respiratory Rate 16 Blood Pressure 148/89 Pulse Oximetry 96 Oxygen Delivery Me thod Room Air Oxygen Flow Rate Fraction of Inspir ed Oxygen Hydration adequate: Yes Nausea and vomiting: No Pain level: 1 Mental status: Baseline
== END 2025-05-18 12:31 | disposition home or self-care (01) ==
PROVIDERS: PCP Nurse Practitioner Family; Visit Provider Specialist
PROC: (CPT 64721; principal; 2025-05-18 10:20)
DX: G56.02 Carpal tunnel syndrome, left upper limb (principal); K21.9 Gastro-esophageal reflux disease without esophagitis; F17.290 Nicotine dependence, other tobacco product, uncomplicated
CPT/HCPCS: 64721; J0131; J0690; J1100; J2250; J2371; J2405; J2704; J3010; J3490; J7030; J9999

== ENCOUNTER 2025-06-06 08:30 | Day surgery (SDC) | payer MEDICAID, SELFPAY ==
[2025-06-06] VITALS (10 sets, daily range): BP systolic 108–168; BP diastolic 60–121; PULSE 66–90; RESP 16–18; TEMP 36.4–36.8; O2SAT 93–99; BMI 34.2
[2025-06-06] MEDS: acetaminophen 1,000 MG/100 ML PIGGYBACK 400 MG IV (09:08)
--- NOTE | 2025-06-06 09:25 | ANES.PREANE2 ---
Pre-Anesthetic Assessment Height/Weight: Height 1.65 m Weight 93.44 kg Temp Pulse Resp BP Pulse Ox O2 Del Method 97.6 F 73 18 135/73 98 Room Air 06/06/25 08:53 06/06/25 08:53 06/06/25 08:53 06/06/25 08:53 06/06/25 08:53 06/06/25 08:53 Operation Date: 06/06/25 10:10 Proposed Procedures p Carpal Tunnel Release(Not Applicable) - Lillie Colbert MD Familial anesthetic complications: None Was Beta Tyler taken within 24 hours: N/A Was Clonidine taken within 24 hours: N/A Last intake: Intake Last Liquid Date 06/05/25 Last Liquid Time 23:59 Last Solid Date 06/05/25 Last Solid Time 23:57 Social No alcohol and No tobacco Vapes Exam alert, oriented x 3, clear to auscultation bilaterally and regular rate & rhythm Airway Mallampati: Class III Dentition: other (very poor dentition) GI Gastroesophageal Reflux Disease Anesthetic Plan ASA status: 2 Anesthesia: General Risk of > 500 ml blood loss (7ml/kg in children): No Medications/Allergies Home Medications ?Medication ?Instructions ?Recorded ?Confirmed ?Last Taken ?Type omeprazole 20 mg capsule,delayed 20 mg PO DAILY 10/16/19 06/05/25 05/08/25 History release diclofenac sodium 1 % topical gel 4 g topical BID #100 grams 03/28/25 06/05/25 05/16/25 Rx (Voltaren Arthritis Pain) ibuprofen 800 mg tablet 800 mg PO Q8H PRN Pain (Scale 05/03/25 06/05/25 05/08/25 History Score 1-3) Allergies Allergy/AdvReac Type Severity Reaction Status Date / Time No Known Allergies Allergy Verified 06/02/25 07:27 Current Medications Generic Name Dose Route Start Last Admin Trade Name Freq PRN Reason Stop Dose Admin Sodium Chloride 1,000 mls @ 30 mls/hr 06/06/25 08:45 06/06/25 09:08 Sodium Chloride 0.9% IV 06/07/25 08:44 30 mls/hr .Q24H ADRIANO Administration PFSH Anesthesia Surgical History (Updated 06/02/25 @ 10:23 by JOSS Graham) S/P carpal tunnel release Date of surgery: May 18, 2025 Surgery: Left carpal tunnel release. Surgeon: Dr. Lillie Colbert MD Family History Other CAD (coronary artery disease) Diabetes Hypertension Denies family history of Stroke Social History Smoking and tobacco/nicotine status: unknown if used tobacco/nicotine Alcohol intake: never Substance/Drug Use: never
[2025-06-06] MEDS: ceFAZolin 2,000 mg SDV 2000 MG IVP (10:46)
--- NOTE | 2025-06-06 10:47 | P.HPUD_ITS ---
Surgery/Procedure H&P Update DATE OF PROCEDURE: June 06, 2025 DATE H&P PERFORMED: 06/02/25 H&P UPDATE INFORMATION: I have reviewed H&P completed within last 30 days, I have examined patient prior to procedure, No changes to prior documentation, H&P is in [facility] EMR on date indicated and Risks and benefits of the procedure reviewed PRIMARY INDICATION FOR PROCEDURE: Right carpal tunnel syndrome PLANNED PROCEDURE: Operation Date: 06/06/25 10:10 Proposed Procedures p Right carpal tunnel release- Lillie Colbert MD Related Problem List Diagnoses 1. Carpal tunnel syndrome on right:
[2025-06-06] MEDS: BUPivacaine 0.5% INJ 30 mL XX (11:20)
[2025-06-06] MEDS: fentaNYL 50 mcg/mL INJ 2mL IVP (11:45)
--- NOTE | 2025-06-06 11:53 | PM.OP ---
Operative Report Date of procedure: June 06, 2025 Pre-op diagnosis: Right carpal tunnel syndrome Post-op diagnosis: Right carpal tunnel syndrome Post-op findings: Severe compression across the carpal canal causing carpal tunnel symptoms Procedure done: Right carpal tunnel release Implants: None Specimens removed/disposition: None Pathology: None Surgeon: Lillie Colbert MD Director Of Human Resources: None Anesthesia: General (Per LMA, ASA 2) Estimated blood loss (mL): 1 Tourniquet time (min): 17 (At 250 mmHg) IV fluids (mL): 700 Urine output (mL): 0 (No Joel) Complications: None Findings: Significant compression across the carpal canal consistent with carpal tunnel symptoms Condition: stable Disposition: PACU (Then return to same-day surgery for discharge to home) Brief History: This 45-year-old woman recently underwent left carpal tunnel release and presented to the office for follow-up wishing to proceed with right carpal tunnel release. Patient continues to drop things. She has jolting shocks into her fingers. After discussion in the office, the patient wished to proceed with carpal tunnel release. Risks and complications were again discussed with her. Consents were signed and questions were answered. Procedure: The patient was brought to the operating theater. The patient had a general anesthesia per LMA, ASA 2. The tourniquet was elevated to 250 mmHg for a total tourniquet time of 17 minutes. The patient was also given Ancef 2 g preoperatively. The arm was then prepped and draped with DuraPrep in usual fashion with the arm draped free. A surgical pause was performed. At the time, the surgical pause, we confirmed the site and side of surgery. We also confirmed the patient's identity, appropriate and timely administration of preoperative antibiotics and preoperative surgical markings. An incision was then made along the thenar crease. The incision crossed the wrist joint in a curvilinear fashion. Dissection continued through skin and soft tissues using a scalpel. The palmaris longus was identified along with the transverse carpal ligament. Each of these was released carefully to avoid injury to the median nerve. We were able to dissect gently into the carpal canal which was noted to be quite tight with significant compression across the median nerve. The nerve was visualized and was an hourglass shape. The canal was subsequently palpated to assure there was no bony encroachment upon the canal. The canal was then palpated distally and proximally to assure that my small finger was passed easily without impingement. Finding this to be so, attention was directed to closure. The wound was irrigated with ropivacaine plain. It was then closed with 3-0 nylon in an interrupted mattress fashion. Sterile dressing was then placed consisting of Dermabond, OpSite, fluffed fluffs, sterile soft roll, and an Bart wrap. The tourniquet was released after 17 minutes. There were no complications. There were no specimens. The procedure was well tolerated. Plan is the patient will be discharged home. Related Problem List Diagnoses 1. Carpal tunnel syndrome on right:
--- NOTE | 2025-06-06 12:40 | ANE.PACU2 ---
Inpatient post-anesthesia follow up: Airway intact: Yes Vital signs: Temperature 98.1 F Pulse Rate 82 Respiratory Rate 16 Blood Pressure 155/96 Pulse Oximetry 95 Oxygen Delivery Me thod Room Air Oxygen Flow Rate 10 Fraction of Inspir ed Oxygen Hydration adequate: Yes Nausea and vomiting: No Pain level: 1 Mental status: Baseline
== END 2025-06-06 12:42 | disposition home or self-care (01) ==
PROVIDERS: PCP Nurse Practitioner Family; Visit Provider Specialist
PROC: (CPT 64721; principal; 2025-06-06 10:10)
DX: G56.01 Carpal tunnel syndrome, right upper limb (principal); K21.9 Gastro-esophageal reflux disease without esophagitis
CPT/HCPCS: 64721; J0131; J0690; J1100; J2250; J2405; J2704; J3010; J3490; J7030; J9999